=== PATIENT | male | born 1960 | race Caucasian/White ===

== ENCOUNTER → 2023-12-15 08:12 | Outpatient (REF) | payer BC, SELFPAY | LOC: DHCBS HW 08:12 | PROVIDERS: ATTENDING PHYSICIAN Internal Medicine Cardiovascular Disease; FAMILY PHYSICIAN Internal Medicine | DX: I25.5 Ischemic cardiomyopathy (principal) | CPT/HCPCS: 93306 ==

== ENCOUNTER → 2024-05-11 07:27 | Outpatient (REF) | payer BC, SELFPAY | LOC: DHCBC/DCA 07:27 | PROVIDERS: ATTENDING PHYSICIAN Internal Medicine Cardiovascular Disease; FAMILY PHYSICIAN Internal Medicine | DX: Z95.5 Presence of coronary angioplasty implant and graft (principal) | CPT/HCPCS: 78452; 93017; A9500; J2785 ==

== ENCOUNTER 2024-10-26 12:17 | Inpatient (IN) | payer BC, SELFPAY ==
[2024-10-24 23:00] VITALS: BP 163/105
[2024-10-25] VITALS (18 sets, daily range): BP systolic 100–162; BP diastolic 70–99; BMI 30.3
[2024-10-25 00:55] LABS: % Basophils 0.6 % (0-2); % Eosinophils 5.2 % (0-6); % Immature Granulocytes 0.4 % (0-0.5); % Lymphocytes 28.8 % (20.5-51.1); % Monocytes 9.1 % (1.7-9.3); % Neutrophils 55.9 % (42.2-75.2); Absolute Eosinophils 0.4 10^3/uL (0-0.7); Absolute Monocytes 0.6 10^3/uL (0.1-0.6); Absolute Neutrophils 3.9 10^3/uL (1.4-6.5); Hematocrit 44.9 % (39.0-52.0); Hemoglobin 15.3 g/dL (13.0-18.0); Mean Corp Hgb Conc. 34.1 g/dL (33.0-37.0); Mean Corpuscular Hgb 32.6 pg (27.0-31.0); Mean Corpuscular Volume 95.5 fL (80.0-94.0); Mean Platelet Volume 9.7 fL (7.4-10.4); Nucleated Red Blood Cells % 0 % (-); Platelet Count 220 10^3/uL (130-400); Red Cell Dist. Width 13.1 % (11.5-14.5); White Blood Cell Count 6.9 10^3/uL (4.8-10.8)
[2024-10-25 01:14] LABS: ALT (SGPT) 43 U/L (0-50); AST (SGOT) 47 U/L (17-59); Albumin 4.2 g/dl (3.5-5.0); Alkaline Phosphatase 55 U/L (38-126); Blood Urea Nitrogen 25 mg/dl (9-20); Calcium 9.2 mg/dl (8.4-10.2); Carbon Dioxide 25 mmol/L (22-30); Chloride 103 mmol/L (98-107); Estimated Creatinine Clearance 117 ml/min; Glucose 117 mg/dl (70-99); Magnesium 1.8 mg/dl (1.6-2.3); Potassium 3.5 mmol/L (3.5-5.1); Sodium 138 mmol/L (135-145); Total Bilirubin 0.3 mg/dl (0.2-1.3); eGFR > 60.00
--- NOTE | 2024-10-25 01:30 | ED.GENMED ---
History of Present Illness
General
Chief Complaint: AICD Problem
Source: patient, records and spouse
Exam Limitations: none
Time Seen by Provider: 10/25/24 01:04
Nursing documentation reviewed up to this point in time: agreed with
History of Present Illness
History of Present Illness:
Patient is a 64-year-old male with a history of ischemic cardiomyopathy with a dual-chamber pacer ICD who states tonight the ICD went off. Patient was then instructed to come to the emergency department. Patient denies any recent illnesses or
injuries. Patient denies any chest pain, shortness of breath, diaphoresis, syncope or palpitations. Patient denies any GI or symptoms. Patient states that he went to bed and started to feel lightheaded and then felt a jolt and was told that
his defibrillator went off. Patient's EF is 15 to 20%.
Past History
Past History
ED Past Medical History: CAD, GERD, HTN, Hypercholesterolemia, [place], Hypothyroidism and Other (GERD,, hypertension, gout, Roverto's syndrome, thyroid disease)
Social History
Tobacco: Non-smoker
Personal:
Review of Systems
Review of Systems
All Other Systems: ROS reviewed and negative except as documented in HPI and ROS
Constitutional: Reports no symptoms
EENT: Reports no symptoms
Respiratory: Reports no symptoms
Cardiac: Reports other (Defibrillator fired); Denies diaphoresis, palpitations or syncope
ABD/GI: Reports no symptoms
: Reports no symptoms
Musculoskeletal: Reports no symptoms
Skin: Reports no symptoms
Neurological: Reports no symptoms
Hematologic/Lymphatic: Reports no symptoms
Phy Exam
Physical Exam
Physical Exam:
Physical Exam
General: No apparent distress, alert and appropriate, well nourished, well hydrated
HENT: Normocephalic, supple with no lymphadenopathy, no thyromegaly
Eyes: Clear sclera, conjuctiva without injection
Heart: Regular rhythm and rate. No S3, S4. No murmur. No NVD
Lungs: No respiratory distress, no stridor, lung sounds clear and equal bilaterally
Abdomen: Soft, nontender, no organomegaly, no CVA tenderness, BS good
Neuro: Alert and oriented x 3, CN II - XII intact, no motor focality, no cerebellar dysfunction
Skin: no rash
Psychiatric: well kept. interactive and cooperative
Extremities: No edema, cyanosis, tenderness
Course
Orders/Labs/Results
Orders:
Orders
10/25/24 00:32
CMP [Comprehensive Metabolic Panel] Urgent
Complete Blood Count/With Diff Urgent
Magnesium Urgent
10/25/24 01:35
ECG [Electrocardiogram (*1)] Urgent
Reason for Study: Chest Pain
10/25/24 01:36
EKG- Treatment ONCE
Abnormal Lab Results
10/25/24
00:32
MCV 95.5 H fL
(80.0-94.0)
MCH 32.6 H pg
(27.0-31.0)
BUN 25 H mg/dl
(9-20)
Glucose 117 H mg/dl
(70-99)
10/25/24 00:32
10/25/24 00:32
Vital Signs
Initial and Last Documented VS:
Initial Vital Signs
Temp Pulse Resp BP Pulse Ox
98 F 69 18 163/105 99
10/24/24 23:00 10/24/24 23:00 10/24/24 23:00 10/24/24 23:00 10/24/24 23:00
Last Documented Vital Signs
Temp Pulse Resp BP Pulse Ox
98 F 60 21 135/89 97
10/24/24 23:00 10/25/24 00:45 10/25/24 00:45 10/25/24 00:16 10/25/24 00:45
*Radiology
Radiology exam reviewed: other (na)
*Pulse Oximetry
Patient hypoxic: no
*EKG
Interpreted by ED Provider?: Yes
EKG Intrepretation Date: 10/25/24
EKG Intrepretation Time: 01:52
Interpretation: abnormal
Comparison EKG: no changes
Heart Rate: 63
Rate: normal
Rhythm: PVC's and av sequential
*[employer] Fe[employer] Interpretation
Rate: normal
Interpretation: abnormal
Heart Rate: 63
Rhythm: av sequential
*Critical Care Note
Total Time (30-74mins, 75-104mins- exclusive of procedures): Not Applicable
ED Attending Note
-
Portions of this chart may have been created with voice recognition software.� Occasional wrong word or��sound alike� substitutions may have occurred due to the inherent limitations of voice recognition software.
Discharge Plan
Departure
Patient Disposition: Admit
Date of Disposition: 10/25/24
Time of Disposition: 01:53
Admit to: Telemetry
Admit to doctor: Hospitalist
Presentation/result/management discussed w/ accepting MD/DO: Cardiology
Patient with high blood pressure during this ER visit?: Yes
Condition: Serious
Covid-19: Not Applicable
Discharge Problem:
AICD discharge, Ventricular fibrillation
Prescriptions:
No Action
multivitamin [Daily Vitamin] 1 EACH tablet
1 tab PO DAILY
omeprazole 40 MG capsule,delayed release(DR/EC)
40 mg PO DAILY
vitamin B complex [B-100 Complex] 1 EACH tablet
1 tab PO DAILY
aspirin 81 MG tablet,chewable
81 mg PO DAILY 0RF
pravastatin 20 MG tablet
20 mg PO QPM Qty: 30 11RF
hydroxychloroquine 200 MG tablet
400 mg PO DAILY 0RF
furosemide 20 MG tablet
20 mg PO MOWEFR Qty: 12 11RF
carvedilol [Coreg] 12.5 MG tablet
12.5 mg PO BID
zinc 50 mg Tablet
50 mg PO DAILY
magnesium 250 mg Tablet
250 mg PO DAILY
[place] 3 Capsule
1,000 mg PO DAILY
Jardiance 10 mg Tablet
10 mg PO DAILY
sacubitril-valsartan [Entresto] 24-26 mg Tablet
2 tab PO DAILY
Repatha Syringe 140 mg/mL Syringe
140 mg SC Q2W
allopurinol 300 MG tablet
300 mg PO DAILY
levothyroxine 200 MCG tablet
150 mcg PO DAILY
Referrals:
UNKNOWN - PT NOT,INTERVIEWE [Family Provider] -
Interventions
Interventions:
*Risk Screen - Suicide Last Done: 10/24/24 23:03
*General Assessment Last Done: 10/24/24 23:03
ED- Fall Risk Assessment Last Done: 10/25/24 00:17
*ED COVID-19 Vaccine History Last Done: 10/24/24 23:03
ED- Cardiac Assessment Last Done: 10/25/24 00:17
Discharge Date and Time
Print Language: AZERI
--- NOTE | 2024-10-25 02:03 | HPS.HSE ---
Family Physician
-
Family Physician: INTERVIEWE UNKNOWN - PT NOT
Chief Complaint
-
AICD discharge
History of Present Illness
This is a 64-year-old with history of ischemic cardiomyopathy, EF previously around 20 to 25%, status post multiple stents, myocardial disease and gout who presents to the emergency department following AICD discharge a few hours just prior to
arrival.
Patient reported being in usual state of health this evening. Was just finishing coming back from the kitchen to watch TV when he laid down, he suddenly felt very dizzy and lightheaded for a second or 2 and then noticed a shock. Denied having any
associated pain but involuntary movement with the discharge. He called he is alarm signaler who recommended he come to the emergency department for evaluation. Patient denied any antecedent event. He denied feeling short of breath. He denied
feeling dizzy post event. Denied any lightheadedness. Denied any subsequent chest pain or discomfort. Patient denies any recent weight gain lower extremity edema orthopnea or PND. He has been no recent changes in his medications. He denied any
recent exertional dyspnea. He denied any recent travels or sick contacts.
Patient does has AICD for about 6 years now. Denies any prior or discharges. He gets routine evaluation for device malfunction and has never had any issues with the device.
[employer] record the patient had a single incident of V-fib which was terminated by the ICD.
In the emergency department here he was afebrile, blood pressure was 135/89 with a pulse of 60, ECG showed a paced rhythm at rate of 63 with UT prolongation to 240. known lateral T waves inversion are unchanged. QTc was 460. No troponin ordered.
No chest x-ray at this time. CBC unremarkable. Electrolytes mostly unremarkable, potassium was 3.5.
Medical History
Past Medical History
Past Medical History: Reports CAD and CHF
Past Surgical History: Reports Other
Additional Past Surgical History:
Hernia repair in childhood
Status post kidney biopsy
Status post PPM AICD
Social History
Tobacco: Non-smoker
Alcohol: Occasional
Drug: None
Personal:
Living: With Family
Family History
Family History: Not pertinent
Allergies / Home Medications
Allergies reflects when Allergies were last updated in [facility].
Home Medications with original date entered in [facility]
Allergy/Medication List:
Allergies
Allergy/AdvReac Type Severity Reaction Status Date / Time
No Known Allergies Allergy Unverified 01/08/19 10:41
Home Medications
multivitamin (Daily Vitamin tablet) 1 tab PO DAILY 10/31/14
omeprazole 40 mg capsule,delayed release 40 mg PO DAILY 10/31/14
vitamin B complex (B-100 Complex tablet) 1 tab PO DAILY 10/31/14
aspirin 81 mg chewable tablet 81 mg PO DAILY 09/30/17
furosemide 20 mg tablet 20 mg PO MOWEFR #12 tabs 09/30/17
hydroxychloroquine 200 mg tablet 400 mg (2 x 200 mg) PO DAILY 09/30/17
pravastatin 20 mg tablet 20 mg PO QPM ##30 09/30/17
carvedilol 12.5 mg tablet (Coreg) 12.5 mg PO BID 01/08/19
allopurinol 300 mg tablet 300 mg PO DAILY 10/25/24
empagliflozin 10 mg tablet (Jardiance) 10 mg PO DAILY 10/25/24
evolocumab 140 mg/mL subcutaneous syringe (Repatha Syringe) 140 mg SC Q2W 10/25/24
levothyroxine 200 mcg tablet 150 mcg PO DAILY 10/25/24
magnesium 250 mg tablet 250 mg PO DAILY 10/25/24
omega-3 fatty acids 1,000 mg PO DAILY 10/25/24
sacubitril 24 mg-valsartan 26 mg tablet (Entresto) 2 tab PO DAILY 10/25/24
zinc 50 mg tablet 50 mg PO DAILY 10/25/24
Review of Systems
-
History Source: Patient
Constitutional: Reports No Symptoms
EENT: Reports No Symptoms
Respiratory: Reports No Symptoms
Cardiac: Reports Other (AICD discharge)
Abdomen/GI: Reports No Symptoms
: Reports No Symptoms
Musculoskeletal: Reports No Symptoms
Skin: Reports No Symptoms
Neurological: Reports No Symptoms
Endocrine: Reports No Symptoms
Hematologic/Lymphatic: Reports No Symptoms
Psych: Reports No Symptoms
Physical Exam
Vital Signs
Vital Signs
Temp Pulse Resp BP Pulse Ox
98 F 60 21 135/89 97
10/24/24 23:00 12 00:45 10/25/24 00:45 10/25/24 00:16 10/25/24 00:45
Physical Exam
General: Well Developed, Well Nourished, No Apparent Distress and Comfortable
HEENT: NormoCephalic, Anicteric, Moist mucous membranes and Atraumatic
Respiratory: Clear
Cardiac: S1/S2 and Regular Rhythm
Breast: Deferred by me
GI: Soft, Non Tender, Non Distended and Normal Bowel Sounds
Rectal: Deferred by Provider
Genito-urinary: Deferred by me
Musculoskeletal: No Clubbing, No Cyanosis and No Edema
Skin: Warm
Neuro: AO x 3
Hematologic/Lymphatic: No Lymphadenopathy
Psych: Calm
Laboratory Results
-
10/25/24 00:32
10/25/24 00:32
Laboratory Results
Total Bilirubin 0.3 mg/dl (0.2-1.3) 10/25/24 00:32
AST 47 U/L (17-59) 10/25/24 00:32
ALT 43 U/L (0-50) 10/25/24 00:32
Alkaline Phosphatase 55 U/L (38-126) 10/25/24 00:32
Data Reviewed
-
Medical Tests (Nuc Med, Echo, EKG etc): Image Personally Visualized and interpreted
Lab Data: Labs Reviewed by me
Old Records: Reviewed
Impression/Plan
-
IMPRESSION:
64-year-old with ischemic cardiomyopathy EF on last echo was around 25 to 30%, status post AICD who discharged from the ICD x 1 for a episode of V-fib. Patient did have a few seconds of feeling lightheaded prior to discharge. Ordered and that he
was completely asymptomatic. AICD for several years and 1st shock reported.
PLAN:
VFIB w/ AICD discharge - Terminated VFIB likely secondary to underlying cardiomyopathy. Will admit to rule out reversible causes and monitor for recurrence.
- admit to ivu
- cycle cardiac enzymes
- check bnp, echo and chest xray
- keep K, Mag > 4,2
- continue aspirin, statin
- no anti-arrhythmic unless recurrence
- cardiology consultation
CHF - Euvolemic appearing and asymptomatic other than event.
- continue lasix per home 20 mg MoWeFr
- GDMT -> carvedilol 12.5 bid, farxiga 10, entresto
- daily weights
DVT PPX - lovenox sq
Code status - full code
[2024-10-25] MEDS: KLOR-CON 40 MEQ PO (02:28)
[2024-10-25 02:52] LABS: NT-proBNP 161 pg/ml; Troponin I 0.013 ng/ml
--- NOTE | 2024-10-25 03:55 | PTCARENOTE ---
Received pt from ED. A paced on the monitor, HR in the 60s. Patient reports no pain at this time. Admission questions completed. Patient alert and oriented x3, walked from stretcher to scale to bed with no problems. Oriented pt to room and discussed
plan of care for the morning, pt verbalizes understanding. No complaints from pt at this time, call beckford within reach.
[2024-10-25 05:38] LABS: Free T4 1.03 ng/dl (0.78-2.19)
[2024-10-25] MEDS: SYNTHROID 150 MCG PO (05:50)
[2024-10-25 06:14] LABS: Blood Urea Nitrogen 21 mg/dl (9-20); Calcium 9.1 mg/dl (8.4-10.2); Carbon Dioxide 27 mmol/L (22-30); Chloride 105 mmol/L (98-107); Estimated Creatinine Clearance 119 ml/min; Glucose 114 mg/dl (70-99); Magnesium 1.9 mg/dl (1.6-2.3); Phosphorus 3.7 mg/dl (2.5-4.5); Sodium 138 mmol/L (135-145); eGFR > 60.00
[2024-10-25 06:24] LABS: Troponin I 0.016 ng/ml
--- NOTE | 2024-10-25 08:36 | PTCARENOTE ---
Received patient this morning resting in bed, A paced on the monitor. No complaints offered, having an echo at the bedside now, call beckford in reach. Awaiting cardiology to see the patient.
--- NOTE | 2024-10-25 08:45 | CARDSERVLU ---
Echocardiogram with [facility] completed after protocol screening completed. Allergies verified.
Patent IV site: _Rt FA____
IV site flushed with 0.9% NaCl pre and post administration.
Diluted bolus method utilized to enhance visualization of ventricular myrick.
Total volume given: __3.0__ mL
Patient tolerated all procedures well without complications.
[2024-10-25] MEDS: COREG 12.5 MG PO ×2 (09:03→20:14)
[2024-10-25] MEDS: ENTRESTO 24 MG/26 MG 1 TAB PO (09:04)
[2024-10-25] MEDS: FARXIGA 10 MG PO (09:04)
[2024-10-25] MEDS: LOW STRENGTH ASPIRIN 81 MG PO (09:04)
[2024-10-25] MEDS: PROTONIX 40 MG PO (09:05)
[2024-10-25] MEDS: MAGNESIUM OXIDE 250 MG PO (09:05)
[2024-10-25] MEDS: FLUSH (NSS) 1 FLUSH IV (09:06)
[2024-10-25] MEDS: ZYLOPRIM 300 MG PO (09:06)
[2024-10-25] MEDS: PLAQUENIL 400 MG PO (09:06)
--- NOTE | 2024-10-25 09:14 | W.PN.UPDATE ---
Update Note
Progress Note Update
Nonbillable addendum (H&P submitted 2 AM)
Admitted with AICD shock experienced at home, interrogation reportedly showed episode of VF terminated by AICD. Evaluated in ER and not felt to have acute ACS, CHF and electrolytes normal.
This morning, resting comfortably, no chest pain/SOB, palpitations, no dizziness or lightheadedness
2D echo performed this AM
Assessment:
Vfib s/p AICD discharged (successfully terminated)
- suspect related to underlying Cardiomyopathy history and CAD history with stents
- no objective evidence of ACS or acute CHF
- electrolytes; keep Mg>2, K>4
- monitor tele
- Echo pending
- Possible Cath today; DCA cards to evaluate. NPO for now
Hx of CAD s/p stents
Essential HTN
HLD
- continue ASA/BB/Repatha/Statin
Hx of Cardiomyopathy (Chronic HFrEF)
- continue Lasix M/W/F
- continue GDMT; Coreg/Farxiga/Entresto
- monitor volume status, weights
- Await Echo
GERD
Hiatal hernia
- continue PPI
hx of Gout - allopurinol
Hypothyroidism - Levothyroxine - TSH 16.5. Would defer changes in setting of V. Fib. Repeat TFTs outpatient.
DVT ppx: Lovenox
Code: Full
--- NOTE | 2024-10-25 09:39 | PTCARENOTE ---
Patient seen by Dr. Elias, for cardiac cath today, patient given his AM meds, otherwise has been NPO. Report given to Jesica. Family will be waiting in his room.
--- NOTE | 2024-10-25 09:40 | CON.CAR ---
Addendum entered and electronically signed by Dmitri Elias MD 10/25/24 11:40:
Attending addendum: Patient seen and examined. Angiograms reviewed. Patient has a known dilated cardiomyopathy and experienced sustained ventricular tachycardia with ICD discharge. He has been relatively pain-free. Troponin levels remain in
normal limits. Severe LV dysfunction. Normal activity throughout the day yesterday. As he went to bed he experienced a jolt in his chest with some mild-moderate dizziness. His defibrillator discharged. Troponin levels have remained within
normal limits. Reasonably active but has gotten away from it over the past 6 to 12 months. Given the ICD discharge the decision was made to proceed with coronary angiography. I explained the risks and benefits and detail to the patient and his
family.
Original Note:
Consultation
Consultation Request
Date/Time Consultation Requested: 10/25/24 at 0304
Date/Time Consultation Performed: 10/25/24 at 0934
Requesting Provider: Dr. Delgado
Performing Provider: Dr. Elias
Reason for Consultation: ICD shock for VF
Medical History
-
History of Present Illness:
Patient came to [facility] last night after an ICD shock for VF and cardiology is consulted. Patient with h/o chest pain and abnormal stress test that led to a cath in 2007 with Cypher SHYANNE to OM at that time. He then presented with acute anterior STEMI
09/26/17 and underwent emergent LHC with Dr. Gonzales where he was found to have 3 vessel CAD with moderate to severe LV dysfunction including proximal LAD occlusion. Patient had 3.25 mm Xience to proximal LAD occlusion and tandem 2.75 mm x2 Xience
to mid LAD lesions 09/26/17. Patient then returned for 4.0mm Xience V to the mid to distal RCA and 3.0mm Xience V to the OM1 09/29/17. Patient has been on optimal medical therapy and EF remained depressed and so Medtronic DC ICD was placed in 2019.
Patient has never been shocked but has had occasional NSVT on device checks in the office. Patient says he was able to shovel some snow on Friday without chest pain, but that most of the shoveling was done by a neighbor. Patient had an uneventful
day yesterday and was laying down to go to bed last night when he felt briefly dizzy and then was shocked. No additional symptoms, he denies chest pain or SOB. He came to [facility] where device check confirmed AICD shock and patient was admitted.
PMH:
h/o NSVT
ICM EF 25-30% by echo 12/15/23
Chronic HFpEF
s/p Medtronic dual-chamber ICD
CAD
s/p Cypher SHYANNE to OM 2007
s/p AWMI 3.25 mm Xience to proximal LAD occlusion and tandem 2.75 mm x2 Xience to mid LAD lesions 09/26/17
s/p 4.0mm Xience V to the mid to distal RCA and 3.0mm Xience V to the OM1 09/29/17
h/o glomerulonephritis
Roverto's disease
Dyslipidemia
Hypothyroidism
Past Medical History
Past Medical History: Other (in HPI)
Past Surgical History: Cardiac (OM PCI 2007, LAD and RCA PCI 2016, Medtronic ICD 2018)
Social History
Tobacco: Non-Smoker
Alcohol: None
Drug: None
Personal:
Living: With Family
Family History
Family History: Cancer, Hypertension and Other (Afib)
Allergies / Home Medications
Allergy/AdvReac Type Severity Reaction Status Date / Time
No Known Allergies Allergy Unverified 01/08/19 10:41
�Medication �Instructions �Recorded �Confirmed �Type
multivitamin (Daily Vitamin tablet) 1 tab PO DAILY 10/31/14 10/25/24 History
omeprazole 40 mg capsule,delayed 40 mg PO DAILY 10/31/14 10/25/24 History
release
vitamin B complex (B-100 Complex 1 tab PO DAILY 10/31/14 10/25/24 History
tablet)
aspirin 81 mg chewable tablet 81 mg PO DAILY 09/30/17 10/25/24 Rx
furosemide 20 mg tablet 20 mg PO MOWEFR #12 tabs 09/30/17 10/25/24 Rx
hydroxychloroquine 200 mg tablet 400 mg (2 x 200 mg) PO DAILY 09/30/17 10/25/24 Rx
pravastatin 20 mg tablet 20 mg PO QPM ##30 09/30/17 10/25/24 Rx
carvedilol 12.5 mg tablet (Coreg) 12.5 mg PO BID 01/08/19 10/25/24 History
allopurinol 300 mg tablet 300 mg PO DAILY 10/25/24 10/25/24 History
empagliflozin 10 mg tablet 10 mg PO DAILY 10/25/24 10/25/24 History
(Jardiance)
evolocumab 140 mg/mL subcutaneous 140 mg SC Q2W 10/25/24 10/25/24 History
syringe (Repatha Syringe)
levothyroxine 200 mcg tablet 150 mcg PO DAILY 10/25/24 10/25/24 History
magnesium 250 mg tablet 250 mg PO DAILY 10/25/24 10/25/24 History
omega-3 fatty acids 1,000 mg PO DAILY 10/25/24 10/25/24 History
sacubitril 24 mg-valsartan 26 mg 2 tab PO DAILY 10/25/24 10/25/24 History
tablet (Entresto)
zinc 50 mg tablet 50 mg PO DAILY 10/25/24 10/25/24 History
Review of Systems
-
History Source: Patient and Family ( and friend sitting bedside.)
All other systems: Negative unless noted
Physical Exam
Vital Signs
Temp Pulse Resp BP Pulse Ox
98.2 F 61 18 145/99 100
10/25/24 07:55 10/25/24 07:54 10/25/24 07:55 10/25/24 07:54 10/25/24 07:55
GEN: NAD. AAOx3
HEENT: EOMI, MMM
LUNGS: RA. CTA B/L, no wheezes or rales
CV: Reg, S1/S2, no murmur
ABD: soft, BS+, NT, ND
EXT: No clubbing, cyanosis, lesions or edema B/L
NEURO: Gross non-focal
SKIN: Warm, dry and pink. No rash
Lab Results
10/25/24 00:32
10/25/24 05:43
Troponin I 0.016 ng/ml 10/25/24 05:43
Irg-K-Cqweorhcyfu Pept 161 pg/ml 10/25/24 02:19
Impression / Plan
-
PCP: Dr. Bowman
Gas Well Drilling Manager: Dr. Anders
Rheum: Dr. Jennifer Ayers
Nephro: Dr. Leno at [facility]
Impression:
Admitted with AICD shock for VF 10/24/24
VF successfully treated with AICD shock x1 10/24/24
h/o NSVT
ICM EF 25-30% by echo 12/15/23
Chronic HFpEF
s/p Medtronic dual-chamber ICD
CAD
s/p Cypher SHYANNE to OM 2007
s/p AWMI 3.25 mm Xience to proximal LAD occlusion and tandem 2.75 mm x2 Xience to mid LAD lesions 09/26/17
s/p 4.0mm Xience V to the mid to distal RCA and 3.0mm Xience V to the OM1 09/29/17
h/o glomerulonephritis
Roverto's disease
Dyslipidemia
Hypothyroidism
Echo 12/15/23: EF 25-30%, grade I diastolic dysfunction, normal RV size and function, no pericardial effusion
Plan:
-Patient came to [facility] last night after an ICD shock for VF and cardiology is consulted. Patient with h/o chest pain and abnormal stress test that led to a cath in 2007 with Cypher SHYANNE to OM at that time. He then presented with acute anterior STEMI
09/26/17 and underwent emergent LHC with Dr. Gonzales where he was found to have 3 vessel CAD with moderate to severe LV dysfunction including proximal LAD occlusion. Patient had 3.25 mm Xience to proximal LAD occlusion and tandem 2.75 mm x2 Xience
to mid LAD lesions 09/26/17. Patient then returned for 4.0mm Xience V to the mid to distal RCA and 3.0mm Xience V to the OM1 09/29/17. Patient has been on optimal medical therapy and EF remained depressed and so Medtronic DC ICD was placed in 2019.
Patient has never been shocked but has had occasional NSVT on device checks in the office. Patient says he was able to shovel some snow on Friday without chest pain, but that most of the shoveling was done by a neighbor. Patient had an uneventful
day yesterday and was laying down to go to bed last night when he felt briefly dizzy and then was shocked. No additional symptoms, he denies chest pain or SOB. He came to [facility] where device check confirmed AICD shock and patient was admitted.
-ECG and tele reviewed by me, A paced with occasional PVCs. No NSVT seen on tele
-Device check reviewed by me and no additional NSVT, 3 years battery longevity remain.
-Troponin normal thus far.
-Check echo, EF was 25-30% in 12/2023
-Talked with patient and family sitting bedside about risks vs benefits of cath. We reviewed possible ischemia based VT/VF. We also talked about possible scar based VT/VF and that pending results of cath could consider outpatient EP evaluation if
patient continues with significant burden of VT/VF and shocks vs possible addition of AAD.
-EF was 25% 12/2023 and since then he had spironolactone 12.5 mg daily added to his regimen. Recheck EF on echo
-Outpatient dose of Coreg 12.5 mg BID continued
-Outpatient dose of Entresto 24/26 mg BID has been continued.
-Outpatient dose of Jardiance 10 mg daily has been continued in the form of Farxiga due to formulary.
-Outpatient dose of aspirin 81 mg dialy continued
-Outpatient dose of Lasix 20 mg MWF has been continued and pro-BNP was 161 this morning. Patient does not appear to be in acute HF.
-LDL 76 on 01/24/24. Patient takes pravastatin 20 mg daily and Repatha 140 mg q 2 weeks
-Patient follows with Dr. Ayers in the Rheum office for h/o Roverto's disease
-Patient follows with nephrology at [facility], Dr. Leon. Cre 0.7 this AM
[2024-10-25 11:08] LABS: ACT-LR - POC 347 Seconds (116-155)
[2024-10-25 11:24] LABS: ACT-LR - POC 316 Seconds (116-155)
--- NOTE | 2024-10-25 11:54 | PTCARENOTE ---
Received patient back from the clinical laboratory scientist after LHC via right radial. Post EKG done, radial band and dressing are dry and intact with palpable radial pulse and pulse ox of 97% on his right hand. Patient denies any pain, reinforced post cath
restrictions. Call beckford in reach, family at the bedside.
--- NOTE | 2024-10-25 12:13 | CM ---
Addendum entered by Geno Dorado 10/25/24 13:15:
Reviewed co-pay for Brilinta with him. He is agreeable to the co-pay.
Original Note:
Reviewed chart. Met with and Mrs. Bailey to review discharge plans. He states prior to admission he resides with his spouse in a two sto ry home with two steps to enter. He states he has a full flight of steps to get to bedroom/full bathroom.
He states he has a powder room on the first floor. He states prior to admission he was independent with ambulation and adls. He states he does not have any DME in the home. He states he has a prescription plan [facility]. Telephone call to [facility], ([phone]) to check on coverage for Brilinta 90 mg po bid. HIs co-pay would be $50.00 a month. He has commercial insurance and can use the $5.00 a month coupon. Placed the Brilinta coupon in his red
discharge folder. Telephone call to [facility],([phone]) to see if they have Brilinta 90 mg po in stock. [facility] has it in stock. The discharge plan is to return home with his spouse when medically stable.
[2024-10-25 12:51] LABS: Troponin I 0.015 ng/ml
--- NOTE | 2024-10-25 14:25 | ITS.CL.CATH ---
Front Office Spec - Catheterization
Cardiac Catheterization
Procedure Report:
LEFT HEART CATH AND CORONARY INTERVENTION
Date of Procedure: October 25, 2024
Referring: Dr. Dmitri Elias
PROCEDURES:
1. Left heart catheterization with coronary and single-plane left ventriculography
2. Successful stenting of the LAD with a 3.0 x 28 mm Xience stent that was implanted at nominal pressures and postdilated with a 3.25 mm noncompliant balloon
INDICATION: This is a 64-year-old gentleman with a prior history of an ischemic cardiomyopathy and remote anterior wall myocardial infarction in 2017. He presented to [facility] following an ICD discharge and is now referred for coronary
angiography.
ACCESS: Right radial artery, 6 Hebrew sheath
HEMODYNAMICS (mmHg):
AO (s/d, m) : 130/80
LV (s/d) : 138/15
LVEDP : 25
CORONARY FINDINGS
Dominance: Right
LEFT MAIN: Normal
LEFT ANTERIOR DESCENDING: The LAD arises normally from the left main and runs in the anterior interventricular groove. The proximal LAD stent is patent. The mid LAD beyond the stented segment has a 65-70% stenosis. A second stent is noted in the
mid LAD and appears widely patent.
CIRCUMFLEX: The circumflex is a large-caliber nondominant vessel giving rise to a moderate-sized OM1. The stent in OM1 is widely patent. The distal portion of OM 1 is diffusely diseased but angiographically stable. The stent in OM 2 is widely
patent.
RIGHT CORONARY: The right coronary artery is a dominant vessel. The stent in the distal right coronary artery near the crux of the vessel remains widely patent. PDA is small. Posterolateral branch is small
VENTRICULOGRAPHY: Left ventriculography was performed in RICHARD projection. The digital single-plane left ventricular ejection fraction is estimated at 20% with anterolateral, mid to distal anterior and apical akinesis
ANGIOPLASTY PROCEDURE DETAIL: Upon review of the diagnostic catheterization films the decision was made to proceed with percutaneous revascularization of the stenosis in the mid LAD. Intravenous heparin was administered and a 180 mg loading dose of
ticagrelor was given. A BMW guidewire across the stenotic segment in the LAD and was Gruber to the apical segment. Balloon predilation was performed and was followed by placement of a 3.0 x 28 mm Xience stent positioned overlapping at the distal
edge of the proximal LAD stent. The stent was implanted in the mid LAD at nominal pressures then postdilated with a 3.25 mm noncompliant balloon with an excellent angiographic result
RADIATION SUMMARY: Fluoro Time (min): 7.9, Dose (mGy): 776.8, DAP (Gy.cm2) : 51.2
CONCLUSIONS
1. Successful stenting of the mid LAD with a 3.0 x 28 mm Xience stent that was postdilated with a 3.25 mm noncompliant balloon
2. Severe LV dysfunction
RECOMMENDATIONS
1. Uninterrupted dual antiplatelet therapy for 6-12 months
2. Continue secondary risk modification
Copy to: Dr. Nigel Anders
[2024-10-25] MEDS: THERAGRAN 1 TABLET PO (15:38)
[2024-10-25] MEDS: LASIX 20 MG PO (15:42)
[2024-10-25] MEDS: PRAVACHOL 20 MG PO (17:42)
--- NOTE | 2024-10-25 18:15 | PTCARENOTE ---
Dressing right wrist is dry and intact, patient denies any pain or discomfort. Patient to start PO amiodarone tonight, A paced/SR on the monitor, remains at the bedside.
[2024-10-25] MEDS: BRILINTA 90 MG PO (20:13)
[2024-10-25] MEDS: LOVENOX 40 MG SC (20:14)
[2024-10-25] MEDS: PACERONE 200 MG PO (20:14)
[2024-10-26 04:22] VITALS: BP 102/85
[2024-10-26 04:30] VITALS: BMI 29.4
[2024-10-26 05:38] LABS: Blood Urea Nitrogen 21 mg/dl (9-20); Calcium 9.2 mg/dl (8.4-10.2); Carbon Dioxide 26 mmol/L (22-30); Chloride 102 mmol/L (98-107); Estimated Creatinine Clearance 104 ml/min; Glucose 103 mg/dl (70-99); Magnesium 1.9 mg/dl (1.6-2.3); Potassium 3.4 mmol/L (3.5-5.1); Sodium 137 mmol/L (135-145); eGFR > 60.00
--- NOTE | 2024-10-26 06:20 | PTCARENOTE ---
Assumed care of pt at change of shift. SR with PVCs and Apacing on tele with HR 70s. Denies CP and SOB. R radial cath site c/d/i with no complications noted. Ambulating independently in room without difficulty. Plan of care discussed and pt
verbalizes understanding, states he is hoping to be discharged later today. Can make needs known. Call beckford within reach.
[2024-10-26] MEDS: SYNTHROID 150 MCG PO (06:39)
[2024-10-26 07:06] LABS: Hematocrit 44.1 % (39.0-52.0); Hemoglobin 15.6 g/dL (13.0-18.0); Mean Corp Hgb Conc. 35.4 g/dL (33.0-37.0); Mean Corpuscular Hgb 33.5 pg (27.0-31.0); Mean Corpuscular Volume 94.6 fL (80.0-94.0); Platelet Count 214 10^3/uL (130-400); Red Blood Cell Count 4.66 10^6/uL (4.70-6.10); Red Cell Dist. Width 13.2 % (11.5-14.5); White Blood Cell Count 6.9 10^3/uL (4.8-10.8)
--- NOTE | 2024-10-26 08:16 | W.PN.CARDCBS ---
Addendum entered and electronically signed by Dmitri Elias MD 10/26/24 10:02:
Attending addendum: Patient seen and examined. He is feeling well. He is stable for discharge. Discussed no driving for 1 month. He is on amiodarone 200mg bid. Discussed the need for dual antiplatelet therapy. He will be scheduled for
followup in our office with SALES REPRESENTATIVE [employer]INTING/PA then back to Dr. Anders.
Original Note:
Today's Communication / Plan
-
D/C to home today on amiodarone and Brilinta as new meds
54 min including meds, d/c instructions and overall coordination of care
Impression / Plan
-
PCP: Dr. Bowman
Merchandise Collector: Dr. Anders
Rheum: Dr. Jennifer Ayers
Nephro: Dr. Leon at [facility]
Impression:
Admitted with AICD shock for VF 10/24/24
VF successfully treated with AICD shock x1 10/24/24
h/o NSVT
ICM EF 25-30% by echo 12/15/23
Chronic HFpEF
s/p Medtronic dual-chamber ICD
CAD
s/p Cypher SHYANNE to OM 2007
s/p AWMI 3.25 mm Xience to proximal LAD occlusion and tandem 2.75 mm x2 Xience to mid LAD lesions 09/26/17
s/p 4.0mm Xience V to the mid to distal RCA and 3.0mm Xience V to the OM1 09/29/17
s/p 3.0 mm Xience to LAD 10/25/24
h/o glomerulonephritis
Roverto's disease
Dyslipidemia
Hypothyroidism
Echo 12/15/23: EF 25-30%, grade I diastolic dysfunction, normal RV size and function, no pericardial effusion
Echo 10/25/24: EF 25-30%, mild conc LVH, apical and apical septal hypokinesis, trace MR/TR, no pericardial effusion
Plan:
-Patient was found to have an LAD lesion that was stented 10/25/24. New to Brilinta 90 mg BID and patient has commercial insurance so he can use the $5 co-pay card.
-Outpatient dose of aspirin 81 mg daily has been continued.
-LDL 76 on 01/24/24. Patient takes pravastatin 20 mg daily and Repatha 140 mg q 2 weeks
-EF stable at 25-30% by echo
-Outpatient dose of Coreg 12.5 mg BID continued
-Outpatient dose of Entresto 24/26 mg BID has been continued.
-Outpatient dose of Jardiance 10 mg daily has been continued in the form of Farxiga due to formulary.
-Outpatient dose of Lasix 20 mg MWF has been continued and pro-BNP was 161 this morning. Patient does not appear to be in acute HF.
-Outpatient dose of spironolactone 12.5 mg daily has been continued.
-Patient follows with Dr. Ayers in the Rheum office for h/o Roverto's disease
-Patient follows with nephrology at [facility], Dr. Leon. Cre 0.7 this AM
-AICD shock for VF on admission
-Device check from 10/24/24 reviewed by me and no additional NSVT, 3 years battery longevity remain.
-New to amiodarone this admission and will order amiodarone 200 mg BID for 1 month and then 200 mg daily thereafter upon d/c
-QTc 467 with amiodarone and hydroxychloroquine.
-No driving for 1 month.
-Patient is stable for d/c to home
-Will e-scribe meds and arrange cardiology f/u
HPI: Patient came to [facility] last night after an ICD shock for VF and cardiology is consulted. Patient with h/o chest pain and abnormal stress test that led to a cath in 2007 with Cypher SHYANNE to OM at that time. He then presented with acute anterior
STEMI 09/26/17 and underwent emergent LHC with Dr. Gonzales where he was found to have 3 vessel CAD with moderate to severe LV dysfunction including proximal LAD occlusion. Patient had 3.25 mm Xience to proximal LAD occlusion and tandem 2.75 mm x2
Xience to mid LAD lesions 09/26/17. Patient then returned for 4.0mm Xience V to the mid to distal RCA and 3.0mm Xience V to the OM1 09/29/17. Patient has been on optimal medical therapy and EF remained depressed and so Medtronic DC ICD was placed in
2018. Patient has never been shocked but has had occasional NSVT on device checks in the office. Patient says he was able to shovel some snow on Friday without chest pain, but that most of the shoveling was done by a neighbor. Patient had an
uneventful day yesterday and was laying down to go to bed last night when he felt briefly dizzy and then was shocked. No additional symptoms, he denies chest pain or SOB. He came to [facility] where device check confirmed AICD shock and patient was
admitted.
Progress Note - Merchandise Collector
Subjective
Date of Service: October 26, 2024
He feels well, no chest pain
Objective
Labs:
10/26/24 04:35
10/26/24 04:35
Labs
Hgb 15.6 g/dL (13.0-18.0) 10/26/24 04:35
Hct 44.1 % (39.0-52.0) 10/26/24 04:35
Plt Count 214 10^3/uL (130-400) 10/26/24 04:35
Sodium 137 mmol/L (135-145) 10/26/24 04:35
Potassium 3.4 mmol/L (3.5-5.1) L 10/26/24 04:35
BUN 21 mg/dl (9-20) H 10/26/24 04:35
Creatinine 0.8 mg/dL (0.7-1.3) 10/26/24 04:35
Glucose 103 mg/dl (70-99) H 10/26/24 04:35
Troponins
12/10/25/24 10/25/24
02:19 05:43 12:19
Troponin I 0.013 0.016 0.015
Vital Signs and I&O:
Vital Signs
Temp Pulse Resp BP Pulse Ox
97.8 F 70 18 102/85 96
10/26/24 04:24 10/26/24 04:22 10/26/24 04:24 10/26/24 04:22 10/26/24 04:24
Vital Signs
Temp Pulse Resp BP Pulse Ox
97.8 F 70 18 102/85 96
10/26/24 04:24 10/26/24 04:22 10/26/24 04:24 10/26/24 04:22 10/26/24 04:24
Intake & Output
10/24/24 10/25/24 10/26/24 10/27/24
06:59 06:59 06:59 06:59
Intake Total 980 / 980
Balance 980 / 980
Physical Exam
Physical Exam
GEN: NAD. AAOx3
HEENT: EOMI, MMM
LUNGS: RA. No audible wheeze
CV: A paced on tele
ABD: ND
EXT: No edema B/L
NEURO: Gross non-focal
SKIN: Warm, dry and pink. No rash
[2024-10-26 08:36] VITALS: BP 123/89
[2024-10-26] MEDS: KCL 40 MEQ PO (08:40)
[2024-10-26] MEDS: BRILINTA 90 MG PO (08:40)
[2024-10-26] MEDS: COREG 12.5 MG PO (08:40)
[2024-10-26] MEDS: MAGNESIUM OXIDE 250 MG PO (08:41)
[2024-10-26] MEDS: LOW STRENGTH ASPIRIN 81 MG PO (08:41)
[2024-10-26] MEDS: ENTRESTO 24 MG/26 MG 1 TAB PO (08:41)
[2024-10-26] MEDS: FARXIGA 10 MG PO (08:41)
[2024-10-26] MEDS: PROTONIX 40 MG PO (08:42)
[2024-10-26] MEDS: PLAQUENIL 400 MG PO (08:42)
[2024-10-26] MEDS: PACERONE 200 MG PO (08:42)
[2024-10-26] MEDS: FLUSH (NSS) 1 FLUSH IV (08:43)
[2024-10-26] MEDS: THERAGRAN 1 TABLET PO (08:43)
[2024-10-26] MEDS: ZYLOPRIM 300 MG PO (08:43)
--- NOTE | 2024-10-26 10:02 | PTCARENOTE ---
Received patient this morning resting in bed. Denies any chest pain, palpitations or sob. Seen by Dr. Elias and states he will let him go home today. Right wrist dressing is dry and intact.
[2024-10-26 11:24] VITALS: BP 108/84
--- NOTE | 2024-10-26 11:48 | CM ---
Reviewed chart. Met with and Mrs. Rollins to review discharge plans. He states he is feeling well and maybe able to go home soon. Reviewed the $5.00 coupon for his Brilinta. Prior to admission he resides with his spouse in a two story home with
two steps to enter. He has a full flight of steps to get to bedroom/fulll bathroom. He has a powder room on on the first floor. Prior to admission he was independent with ambulation and adls. He does not have any DME in the home. He has a
prescription plan with [facility] and uses [facility]. The discharge plan is to return home with his spouse when medically stable.
--- NOTE | 2024-10-26 12:06 | W.PN.HOSP.TC ---
Today's Communication/Plan
-
dc to home
Assessment / Plan
Assessment / Plan
Assessment:
Vfib s/p AICD discharged (successfully terminated)
- suspect related to underlying Cardiomyopathy history and CAD history with stents
- no objective evidence of ACS or acute CHF
- electrolytes; keep Mg>2, K>4
- monitor tele
- Echo 10/25/24: EF 25-30%, mild conc LVH, apical and apical septal hypokinesis, trace MR/TR, no pericardial effusion
- s/p LHC with LAD stenting
- New to amiodarone this admission and will order amiodarone 200 mg BID for 1 month and then 200 mg daily thereafter upon d/c
Hx of CAD s/p stents
Essential HTN
HLD
- continue ASA/BB/Repatha/Statin + Brilinta
Hx of Cardiomyopathy (Chronic HFrEF)
- continue Lasix M/W/F
- continue GDMT; Coreg/Farxiga/Entresto
- monitor volume status, weights
GERD
Hiatal hernia
- continue PPI
hx of Gout - allopurinol
Hypothyroidism - Levothyroxine - TSH 16.5. Would defer changes in setting of V. Fib. Repeat TFTs outpatient.
DVT ppx: Lovenox
Code: Full
More than 30 minutes spent in discharge including
Final examination of the patient
Summarizing hospital stay
Instructions for continuing care to all relevant caregivers
Preparation of discharge records, prescriptions, and referral forms
Total time spent (in minutes):41
Anticipated Discharge: Today
Subjective/Interval History
-
Date of Service: October 26, 2024
s/p LHC and stent
no cp or sob
eager for home
Objective Data
-
Labs:
Laboratory Results
10/26/24
04:35
WBC 6.9
Hgb 15.6
Hct 44.1
Plt Count 214
Sodium 137
Potassium 3.4 L
Chloride 102
Carbon Dioxide 26
BUN 21 H
Creatinine 0.8
Glucose 103 H
Calcium 9.2
Vital Signs:
Vital Signs
Temp Pulse Resp BP Pulse Ox
98.2 F 72 18 123/89 98
10/26/24 11:25 10/26/24 08:40 10/26/24 11:25 10/26/24 08:40 10/26/24 11:25
I&O
10/25/24 10/26/24 10/27/24
06:59 06:59 06:59
Intake Total 980 / 980
Balance 980 / 980
Physical Exam
-
General: No Apparent Distress
HEENT: Normocephalic and Atraumatic
Respiratory: Negative Wheezes
Cardiac: Regular Rhythm and S1/S2
GI: Soft and Nontender
Genito-urinary: No Costovertebral Tender
Musculoskeletal: No Edema
Neuro: AO x 3
Hematologic / Lymphatic: No Lymphadenopathy
Psych: Calm
Data Reviewed
-
Total Time Spent with Patient (in minutes): 41
Labs: Labs Reviewed by me
--- NOTE | 2024-10-26 12:09 | W.DS.TRANS ---
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
-
Discharge Instructions:
Discharge Diagnosis/Procedures Angioplasty and stent to Left Anterior
Descending artery
Diet Low Cholesterol
Activity Other activity
Driving Restrictions No driving for 1 month
Bathing Restrictions OK to Shower
Other Services Cardiac Rehab
Instructions:
Stand-Alone Forms: DC Instructions- Cath/EP Lab
Changes to Home Medications: No
Discharge Medications:
DC Medications w/original date entered in [employer]
multivitamin (Daily Vitamin tablet) 1 tab PO DAILY 10/31/14
omeprazole 40 mg capsule,delayed release 40 mg PO DAILY 10/31/14
vitamin B complex (B-100 Complex tablet) 1 tab PO DAILY 10/31/14
aspirin 81 mg chewable tablet 81 mg PO DAILY 09/30/17
furosemide 20 mg tablet 20 mg PO MOWEFR #12 tabs 09/30/17
hydroxychloroquine 200 mg tablet 400 mg (2 x 200 mg) PO DAILY 09/30/17
pravastatin 20 mg tablet 20 mg PO QPM ##30 09/30/17
carvedilol 12.5 mg tablet (Coreg) 12.5 mg PO BID 01/08/19
allopurinol 300 mg tablet 300 mg PO DAILY 10/25/24
empagliflozin 10 mg tablet (Jardiance) 10 mg PO DAILY 10/25/24
evolocumab 140 mg/mL subcutaneous syringe (Repatha Syringe) 140 mg SC Q2W 10/25/24
levothyroxine 200 mcg tablet 150 mcg PO DAILY 10/25/24
magnesium 250 mg tablet 250 mg PO DAILY 10/25/24
omega-3 fatty acids 1,000 mg PO DAILY 10/25/24
zinc 50 mg tablet 50 mg PO DAILY 10/25/24
amiodarone 200 mg tablet 200 mg PO BID Arrhythmia #60 tabs 10/26/24
amiodarone 200 mg tablet 200 mg PO DAILY Arrhythmia #30 tabs 10/26/24
sacubitril 24 mg-valsartan 26 mg tablet (Entresto) 1 tab PO BID Heart Failure #60 tabs 10/26/24
ticagrelor 90 mg tablet (Brilinta) 90 mg PO BID Heart disease/condition #60 tabs 10/26/24
Home Medication Changes
Pending Results: No
Total time spent discharging patient (in min): 41
--- NOTE | 2024-10-26 13:07 | PTCARENOTE ---
Reviewed discharge instructions with the patient and his and they state their understanding. Patient is aware of follow up appointments, new medication ordered, patient discharged home with his .
== END 2024-10-26 12:50 | disposition home or self-care (01) | DRG 321 ==
LOC: IVU 12:17
PROVIDERS: Emergency Medicine; Nurse Practitioner; ADMITTING PHYSICIAN Internal Medicine; ATTENDING PHYSICIAN Internal Medicine; EMERGENCY PHYSICIAN Emergency Medicine; OTHER PHYSICIAN Internal Medicine Interventional Cardiology
PROC: 4A023N7 Measurement of Cardiac Sampling and Pressure, Left Heart, Percutaneous Approach (ICD-10-PCS; 2024-10-25)
PROC: 02703DZ Dilation of Coronary Artery, One Artery with Intraluminal Device, Percutaneous Approach (ICD-10-PCS; 2024-10-25)
PROC: B215YZZ Fluoroscopy of Left Heart using Other Contrast (ICD-10-PCS; 2024-10-25)
PROC: B211YZZ Fluoroscopy of Multiple Coronary Arteries using Other Contrast (ICD-10-PCS; 2024-10-25)
DX: I25.10 Atherosclerotic heart disease of native coronary artery without angina pectoris (principal); I49.01 Ventricular fibrillation; I50.22 Chronic systolic (congestive) heart failure; E74.04 McArdle disease; I11.0 Hypertensive heart disease with heart failure; K21.9 Gastro-esophageal reflux disease without esophagitis; K44.9 Diaphragmatic hernia without obstruction or gangrene; M10.9 Gout, unspecified; E03.9 Hypothyroidism, unspecified; E78.00 Pure hypercholesterolemia, unspecified; I25.5 Ischemic cardiomyopathy; I25.2 Old myocardial infarction; Z79.890 Hormone replacement therapy; Z95.5 Presence of coronary angioplasty implant and graft; Z95.810 Presence of automatic (implantable) cardiac defibrillator; Z79.82 Long term (current) use of aspirin; Z79.899 Other long term (current) drug therapy
CPT/HCPCS: 71046; 80048; 80053; 83735; 83880; 84100; 84439; 84443; 84484; 85025; 85027; 85347; 93005; 93306; 93458; 99285; C1725; C1769; C1874; C1894; C9600; Q9950; Q9967

== ENCOUNTER 2024-12-03 08:45 | Outpatient (RCR) | payer BC, SELFPAY | END 2024-12-03 23:59 | disposition home or self-care (01) | LOC: CRHB 08:45 | PROVIDERS: Internal Medicine Cardiovascular Disease; ATTENDING PHYSICIAN Internal Medicine Cardiovascular Disease | DX: I25.10 Atherosclerotic heart disease of native coronary artery without angina pectoris (principal); Z95.5 Presence of coronary angioplasty implant and graft | CPT/HCPCS: 93797; 93798 ==

== ENCOUNTER 2024-12-31 08:41 | Outpatient (RCR) | payer BC, SELFPAY | END 2024-12-31 23:59 | disposition home or self-care (01) | LOC: CRHB 08:41 | PROVIDERS: ATTENDING PHYSICIAN Internal Medicine Cardiovascular Disease | DX: I25.10 Atherosclerotic heart disease of native coronary artery without angina pectoris (principal); Z95.5 Presence of coronary angioplasty implant and graft | CPT/HCPCS: 93797; 93798; G0422; G0423 ==

== ENCOUNTER 2025-01-14 07:15 | Outpatient (RCR) | payer BC, SELFPAY ==
[2025-01-12 09:06] LABS: HDL Cholesterol 39 mg/dl; LDL Cholesterol, Calculated 27 mg/dl; Total Cholesterol 97 mg/dl (50-199); Triglyceride 155 mg/dl (10-149); Very Low Density Lipoprotein 31 mg/dl (0-30)
== END 2025-01-14 08:44 | disposition home or self-care (01) ==
LOC: CRHB 07:15
PROVIDERS: ATTENDING PHYSICIAN Internal Medicine Cardiovascular Disease; FAMILY PHYSICIAN Internal Medicine
DX: I25.10 Atherosclerotic heart disease of native coronary artery without angina pectoris (principal); Z95.5 Presence of coronary angioplasty implant and graft
CPT/HCPCS: 36415; 80061; 93797; 93798

== ENCOUNTER 2025-05-13 21:43 | Emergency (ER) | payer BC, SELFPAY ==
[2025-05-13 21:45] VITALS: BP 136/94
[2025-05-13 22:11] LABS: Hematocrit 43.4 % (39.0-52.0); Hemoglobin 15.5 g/dL (13.0-18.0); Mean Corp Hgb Conc. 35.7 g/dL (33.0-37.0); Mean Corpuscular Volume 96.0 fL (80.0-94.0); Nucleated Red Blood Cells % 0 % (-); Platelet Count 213 10^3/uL (130-400); Red Cell Dist. Width 12.7 % (11.5-14.5)
[2025-05-13 22:17] VITALS: BP 130/84
[2025-05-13 22:24] LABS: ALT (SGPT) 49 U/L (0-50); AST (SGOT) 51 U/L (17-59); Albumin 4.7 g/dl (3.5-5.0); Alkaline Phosphatase 51 U/L (38-126); Blood Urea Nitrogen 25 mg/dl (9-20); Calcium 9.0 mg/dl (8.4-10.2); Carbon Dioxide 28 mmol/L (22-30); Chloride 105 mmol/L (98-107); Glucose 106 mg/dl (70-99); Potassium 3.7 mmol/L (3.5-5.1); Sodium 139 mmol/L (135-145); Total Protein 8.1 g/dl (6.3-8.2); eGFR > 60.00
[2025-05-13 22:28] VITALS: BMI 28.9
[2025-05-13 22:35] LABS: Troponin I < 0.012 ng/ml
--- NOTE | 2025-05-13 22:46 | ED.GENMED ---
History of Present Illness
<Dulce Henning NP - Last Filed: 05/14/25 00:46>
General
Chief Complaint: AICD Problem
Source: patient
Exam Limitations: none
Time Seen by Provider: 05/13/25 22:35
Nursing documentation reviewed up to this point in time: agreed with
History of Present Illness
History of Present Illness:
Patient to ED after firing of AICD. States he was lying down and suddenly felt faint. He reports his vision becoming black and white. [place] a jolt and symptoms resolved. To ED accompanied by spouse. He is currently symptom free
Past History
<Dulce Henning NP - Last Filed: 05/14/25 00:46>
Past History
ED Past Medical History: CAD, GERD, HTN, Hypercholesterolemia, VT, Hypothyroidism and Other (GERD,, hypertension, gout, Roverto's syndrome, thyroid disease)
Social History
Tobacco: Non-smoker
Personal:
Review of Systems
<Dulce Henning NP - Last Filed: 05/14/25 00:46>
Review of Systems
Allergies reviewed?: Yes
All Other Systems: ROS reviewed and negative except as documented in HPI and ROS
Constitutional: Reports no symptoms
EENT: Reports no symptoms
Respiratory: Reports no symptoms
Cardiac: Reports other (AICD firing GOLF BALL TRIMMER)
ABD/GI: Reports no symptoms
: Reports no symptoms
Musculoskeletal: Reports no symptoms
Skin: Reports no symptoms
Neurological: Reports no symptoms
Psychiatric: Reports no symptoms
Phy Exam
<Dulce Henning NP - Last Filed: 05/14/25 00:46>
General Physical Exam
General Presentation: no apparent distress
General age: appears stated age
General Skin: warm and dry
General Habitus: normal
General Mental: alert
Cardiovascular Exam
Cardiovascular Exam: regular rate/rhythm and no edema
Neurological Exam
Neurological Exam: alert and oriented x3
Musculoskeletal Exam
Musculoskeletal Exam: full ROM and neuro vasc intact
Skin Exam
Skin Exam: normal color, warm/dry and no rash
Psychiatric Exam
Psychiatric Exam: normal mood/affect
Course
<Dulce Henning NP - Last Filed: 05/14/25 00:46>
Orders/Labs/Results
Orders:
Orders
05/13/25 21:50
ECG [Electrocardiogram (*1)] Urgent
Reason for Study: Other
Other Reason for Exam: AICD problem
05/13/25 21:51
EKG- Treatment ONCE
05/13/25 21:54
Complete Blood Count/With Diff Urgent
Comprehensive Metabolic Panel Urgent
Magnesium Urgent
Comment: ADD ON
Troponin I Urgent
05/13/25 22:03
Interrogated [Interrogate Pacemaker- Treatment] ONCE
05/13/25 22:46
Add On- LAB Urgent
Tests Added?: magnesium
05/13/25 22:47
Potassium Chloride [KCl] 40 meq PO NOW STA
05/13/25 23:45
Magnesium Oxide 1,000 mg PO NOW STA
05/13/25 23:47
Amiodarone [Pacerone] 200 mg PO NOW STA
05/14/25 00:00
CR Chest - 2 Views Urgent
Reason For Exam: s/p AICD firing
Abnormal Lab Results
05/13/25
21:54
RBC 4.52 L 10^6/uL
(4.70-6.10)
MCV 96.0 H fL
(80.0-94.0)
MCH 34.3 H pg
(27.0-31.0)
BUN 25 H mg/dl
(9-20)
Glucose 106 H mg/dl
(70-99)
05/13/25 21:54
05/13/25 21:54
Vital Signs
Initial and Last Documented VS:
Initial Vital Signs
Temp Pulse Resp BP Pulse Ox
98.0 F 71 18 136/94 98
05/13/25 21:45 05/13/25 21:45 05/13/25 21:45 05/13/25 21:45 05/13/25 21:45
Last Documented Vital Signs
Temp Pulse Resp BP Pulse Ox
98.0 F 64 17 103/71 96
05/13/25 21:45 05/13/25 23:56 05/13/25 23:30 05/13/25 23:56 05/13/25 23:30
<Jeferson Sanabria, DO - Last Filed: 05/13/25 22:56>
Orders/Labs/Results
Orders:
Orders
05/13/25 21:50
ECG [Electrocardiogram (*1)] Urgent
Reason for Study: Other
Other Reason for Exam: AICD problem
05/13/25 21:51
EKG- Treatment ONCE
05/13/25 21:54
Complete Blood Count/With Diff Urgent
Comprehensive Metabolic Panel Urgent
Magnesium Urgent
Comment: ADD ON
Troponin I Urgent
05/13/25 22:03
Interrogated [Interrogate Pacemaker- Treatment] ONCE
05/13/25 22:46
Add On- LAB Urgent
Tests Added?: magnesium
05/13/25 22:47
Potassium Chloride [KCl] 40 meq PO NOW STA
05/13/25 23:45
Magnesium Oxide 1,000 mg PO NOW STA
05/13/25 23:47
Amiodarone [Pacerone] 200 mg PO NOW STA
05/14/25 00:00
CR Chest - 2 Views Urgent
Reason For Exam: s/p AICD firing
Abnormal Lab Results
05/13/25
21:54
RBC 4.52 L 10^6/uL
(4.70-6.10)
MCV 96.0 H fL
(80.0-94.0)
MCH 34.3 H pg
(27.0-31.0)
BUN 25 H mg/dl
(9-20)
Glucose 106 H mg/dl
(70-99)
05/13/25 21:54
05/13/25 21:54
Vital Signs
Initial and Last Documented VS:
Initial Vital Signs
Temp Pulse Resp BP Pulse Ox
98.0 F 71 18 136/94 98
05/13/25 21:45 05/13/25 21:45 05/13/25 21:45 05/13/25 21:45 05/13/25 21:45
Last Documented Vital Signs
Temp Pulse Resp BP Pulse Ox
98.0 F 64 17 103/71 96
05/13/25 21:45 05/13/25 23:56 05/13/25 23:30 05/13/25 23:56 05/13/25 23:30
<Dulce Henning NP - Last Filed: 05/14/25 00:46>
*Radiology
Radiology exam reviewed: radiology read reviewed
*Pulse Oximetry
SaO2: 97
Oxygen Mode of Delivery: Room air
Patient hypoxic: no
*Critical Care Note
Total Time (30-74mins, 75-104mins- exclusive of procedures): Not Applicable
<Jeferson Sanabria DO - Last Filed: 05/13/25 22:56>
*Pulse Oximetry
Patient hypoxic: no
<Dulce Henning NP - Last Filed: 05/14/25 00:46>
Update Note
Update Note:
Patient to ED after AICD firing at home tonight. No symptoms or complaints since. Remains NSR. Case discussed [facility] Dr. Sanabria who also evaluated this patient. Labs reviewed. K 3.7, Mag 1.8 Given dose of KCL and Magnesium in ED as recommended by
Dr. Sanabria. Dr. Matthews consulted by Dr. Sanabria. Recommends restarting AMiodorone 200mg bid and plan to discharge home if no further AICD firing. Amiodorone Dose given in ED. No futher AICD firing while in ED. He feels well and agreeable to
discharge home. Given instructions on s/s to return to ED and he is agreeable to plan.
ED Attending Note
<Dulce Henning SECURITY FLEX UTILITY OFFICER - Last Filed: 05/14/25 00:46>
-
Portions of this chart may have been created with voice recognition software.� Occasional wrong word or��sound alike� substitutions may have occurred due to the inherent limitations of voice recognition software.
<Jeferson Sanabria, DO - Last Filed: 05/13/25 22:56>
ED Attending Note
I performed the substantive portion of visit, reviewed & personally made and approve the management plan that is documented in note by myself or TOMASZ.: Yes
ED Attending Note:
Seen with nurse practitioner examined independently 64-year-old male AICD shock, x 1 early CV spoke with his certified hand therapist plan was to start back on amiodarone which was stopped a few weeks ago by his primary certified hand therapist, apparently the patient came
to the ER to be evaluated no further shocks, no chest pain or shortness of breath, potassium noted magnesium pending
Reviewed with cardiology plan will be to restart his amiodarone, replete his electrolytes, EP follow-up next week ER sooner if any symptoms or repeat shocks
Discharge Plan
Departure
Patient Disposition: Home (Routine Discharge)
Date of Disposition: 05/14/25
Time of Disposition: 00:25
Patient with high blood pressure during this ER visit?: No
Condition: Good
Covid-19: Not Applicable
Discharge Problem:
AICD discharge
Instructions: Ventricular fibrillation
Prescriptions:
New
amiodarone 200 mg tablet
200 mg PO BID Qty: 60 0RF
No Action
multivitamin [Daily Vitamin] 1 EACH tablet
1 tab PO DAILY
omeprazole 40 MG capsule,delayed release(DR/EC)
40 mg PO DAILY
vitamin B complex [B-100 Complex] 1 EACH tablet
1 tab PO DAILY
aspirin 81 MG tablet,chewable
81 mg PO DAILY 0RF
pravastatin 20 MG tablet
20 mg PO QPM Qty: 30 11RF
hydroxychloroquine 200 MG tablet
400 mg PO DAILY 0RF
furosemide 20 MG tablet
20 mg PO MOWEFR Qty: 12 11RF
carvedilol [Coreg] 12.5 MG tablet
12.5 mg PO BID
zinc 50 mg Tablet
50 mg PO DAILY
magnesium 250 mg Tablet
250 mg PO DAILY
omega-3 fatty acids Capsule
1,000 mg PO DAILY
Jardiance 10 mg Tablet
10 mg PO DAILY
Repatha Syringe 140 mg/mL Syringe
140 mg SC Q2W
allopurinol 300 MG tablet
300 mg PO DAILY
levothyroxine 200 MCG tablet
150 mcg PO DAILY
Brilinta 90 mg Tablet
90 mg PO BID Qty: 60 11RF
sacubitril-valsartan [Entresto] 24-26 mg Tablet
1 tab PO BID Qty: 60 0RF
amiodarone 200 mg Tablet
200 mg PO BID Qty: 60 0RF
amiodarone 200 mg tablet
200 mg PO DAILY Qty: 30 11RF
Referrals:
Cesilia Bowman MD [Family Provider, Internal Medicine]
Jennifer Matthews MD [Active, Cardiology]
Referral Note: Follow up on Friday
Activity Restrictions/Additional Instructions:
Return to the emergency department immediately for any further AICD firing.
Interventions
Interventions:
*General Assessment Last Done: 05/13/25 21:45
*ED- Fall Risk Assessment Last Done: 05/13/25 22:29
*ED COVID-19 Vaccine History Last Done: 05/13/25 22:29
ED- Cardiac Assessment Last Done: 05/13/25 22:29
Discharge Date and Time
Print Language: KINYARWANDA
[2025-05-13 23:00] VITALS: BP 109/73
[2025-05-13] MEDS: KCL 40 MEQ PO (23:01)
[2025-05-13 23:17] LABS: Magnesium 1.8 mg/dl (1.6-2.3)
[2025-05-13 23:56] VITALS: BP 103/71
[2025-05-13] MEDS: PACERONE 200 MG PO (23:56)
[2025-05-13] MEDS: MAGNESIUM OXIDE 1000 MG PO (23:57)
[2025-05-14] VITALS: BP 106/71
== END 2025-05-14 00:50 | disposition home or self-care (01) ==
LOC: EMR 21:43
PROVIDERS: Student in an Organized Health Care Education/Training Program; EMERGENCY PHYSICIAN Emergency Medicine; FAMILY PHYSICIAN Internal Medicine
DX: R55 Syncope and collapse (principal); Z45.02 Encounter for adjustment and management of automatic implantable cardiac defibrillator; H53.8 Other visual disturbances; I25.10 Atherosclerotic heart disease of native coronary artery without angina pectoris; I10 Essential (primary) hypertension; K21.9 Gastro-esophageal reflux disease without esophagitis; E03.9 Hypothyroidism, unspecified; M10.9 Gout, unspecified; E74.04 McArdle disease; I42.9 Cardiomyopathy, unspecified; E78.5 Hyperlipidemia, unspecified; K44.9 Diaphragmatic hernia without obstruction or gangrene; M19.90 Unspecified osteoarthritis, unspecified site; E07.9 Disorder of thyroid, unspecified; I25.2 Old myocardial infarction; Z79.82 Long term (current) use of aspirin
CPT/HCPCS: 99285; 93289; 71046; 80053; 83735; 84484; 85025; 93005

== ENCOUNTER → 2025-06-01 07:06 | Outpatient (REF) | payer BC, SELFPAY | LOC: HWRCS 07:06 | PROVIDERS: ATTENDING PHYSICIAN Nurse Practitioner; FAMILY PHYSICIAN Internal Medicine | DX: I47.20 Ventricular tachycardia, unspecified (principal); I25.10 Atherosclerotic heart disease of native coronary artery without angina pectoris | CPT/HCPCS: 93306 ==

== ENCOUNTER → 2025-06-15 07:12 | Outpatient (REF) | payer BC, SELFPAY | LOC: HWRCS 07:12 | PROVIDERS: ATTENDING PHYSICIAN Nurse Practitioner; FAMILY PHYSICIAN Internal Medicine | DX: I47.20 Ventricular tachycardia, unspecified (principal); I25.10 Atherosclerotic heart disease of native coronary artery without angina pectoris | CPT/HCPCS: 78452; 93017; A9500; J2785 ==

== ENCOUNTER 2025-08-05 07:51 | Day surgery (SDC) | payer BC, SELFPAY ==
[2025-07-15 07:56] VITALS: BMI 28.2
[2025-07-15 08:52] LABS: Hematocrit 46.3 % (39.0-52.0); Hemoglobin 15.6 g/dL (13.0-18.0); Mean Corp Hgb Conc. 33.7 g/dL (33.0-37.0); Mean Corpuscular Volume 98.5 fL (80.0-94.0); Nucleated Red Blood Cells % 0 % (-); Platelet Count 203 10^3/uL (130-400); Red Cell Dist. Width 13.4 % (11.5-14.5)
[2025-07-15 09:21] LABS: ALT (SGPT) 36 U/L (0-50); AST (SGOT) 42 U/L (17-59); Albumin 4.4 g/dl (3.5-5.0); Alkaline Phosphatase 52 U/L (38-126); Blood Urea Nitrogen 24 mg/dl (9-20); Calcium 9.4 mg/dl (8.4-10.2); Carbon Dioxide 27 mmol/L (22-30); Chloride 107 mmol/L (98-107); Estimated Creatinine Clearance 91 ml/min; Glucose 112 mg/dl (70-99); Magnesium 2.1 mg/dl (1.6-2.3); Potassium 3.9 mmol/L (3.5-5.1); Sodium 142 mmol/L (135-145); Total Protein 7.5 g/dl (6.3-8.2); eGFR > 60.00
[2025-08-05] VITALS (18 sets, daily range): BP systolic 97–143; BP diastolic 65–87
[2025-08-05] MEDS: NSS 500 IV (09:17)
--- NOTE | 2025-08-05 10:47 | ITS.CL.ABL ---
Environmental Technical Officer - Ablation
Ablation
Procedure Report:
ELECTROPHYSIOLOGY ABLATION REPORT
Date of Procedure: August 05, 2025
Referring: Dr. Nigel Anders
INDICATION: Recurrent sustained ventricular tachycardia
HISTORY:
He has history of ischemic/infarct related cardiomyopathy.
He had sustained ventricular tachycardia requiring ICD shock on October 25, 2024. Further evaluation found him to have mid LAD stenosis for which he underwent drug-eluting stent placement. He was started on amiodarone which was continued for 6
months and then stopped in April 2025. He had recurrent VT May 13, 2025 treated with ATP and then shock. Amiodarone was resumed. Ischemic evaluation with sestamibi study as well as echocardiogram were felt to be unchanged.
PROCEDURE:
The Medtronic chamber ICD was interrogated and found to have normal stable function. VT/VF detections were programmed OFF. Additional programming changes included reprogramming of base pacing rate from 60 to 75 bpm in MVP mode.
Sheaths were placed and IV heparin bolus followed by continuous infusion to maintain ACT at 250-350 seconds.
Intracardiac echocardiogram was utilized to assist in catheter positioning/mapping and ablation as well as to monitor for any mechanical injury during the procedure.
Procedural plan is to obtain both transseptal access for left ventricular mapping and ablation as well as arterial access for retrograde aortic mapping and ablation.
Heparin bolus and infusion to target ACT at 300 -350 seconds was administered. Transseptal puncture was performed. This entailed advancing a sheath with dilator into the superior vena cava and withdrawing both (monitoring intracardiac ultrasound,
fluoroscopy and tip pressure) with the tip oriented toward the atrial septum. The fossa ovalis was engaged (indicated by sudden displacement of the sheath tip as well as tenting of the fossa seen on intracardiac ultrasound).
The FarNavigenics transseptal system was used. Left atrial catheter position was confirmed by echocardiographic imaging and fluoroscopy followed by RF delivery using the goOutMap system resulting in successful LA access with pressure monitoring
demonstrating LA pressure waveforms (LA mean pressure 1 mm Hg). The sheath was advanced over the dilator and positioned in the left atrium.
Right femoral arterial access was obtained and access upsized to the 12 [place] Agilis sheath.
The multipolar mapping catheter ([employer]) was positioned within the LV cavity using a retrograde aortic approach.
Extensive sinus rhythm electroanatomical three-dimensional voltage map/geometry was collected and created using ARUN.
Intracardiac echocardiogram as well as voltage map demonstrated that there is an area of aneurysmal scar at the ant and septal mid-apical segments
Functional substrate mapping techniques identified potential markers of VT substrate such as late potentials (LPs) and areas with local abnormal ventricular activation (LAVAs) within low voltage areas to develop isochronical late activation maps
(ILAM) identifying deceleration zones (DZs) and potential VT termination sites. There is patch of of isochronal late activation extending from within this aneurysmal dilatation to the mid interventricular septum.
Programmed electrical stimulation induced ventricular tachycardia. Very rapid, 300 ms with right bundle superior and lateral axis, mid to apical. Activation mapping was attempted however this rhythm was hemodynamically unstable and required urgent
cardioversion. Programmed electrical stimulation was again performed and similar VT was induced again hemodynamically unstable requiring urgent cardioversion. Limited activation data suggested breakout from the mid to apical septal scar from
inferior to superior/anterior.
Next, substrate modification was undertaken targeting the area of isochronal late activation and local abnormal ventricular activation.
RF application was delivered using 35 W for up to 45 seconds at each individual site.
Initially, retrograde transaortic approach utilizing a 4 mm irrigated contact sensing RF ablation catheter was utilized for ablation at the targeted sites. Navigation of the catheter tip in and around the area of the medial papillary muscle was
difficult. In an effort to attempt better catheter positioning, the 4 mm irrigated tip mapping and ablation catheter was withdrawn from the transaortic approach and was delivered via the transseptal puncture catheter. The ablation catheter was
then positioned across the mitral valve for additional mapping and ablation at the targeted site allowing additional ablations within the targeted site.
Next programmed electrical stimulation was repeated and in contrast to the preablation state, no sustained ventricular arrhythmias could now be induced.
Next, the Farapulse pulsed field ablation catheter was substituted for the 4 mm tip catheter and pulsed electric field energy's were delivered in both basket and mostly the flower configuration at the targeted site further reducing ventricular
signal amplitude.
Intracardiac echocardiogram demonstrated no pericardial effusion and no change in left ventricular systolic function.
There is no change in the fluoroscopic nor the echocardiographic appearance of the atrial and ventricular leads.
Catheters/sheaths were withdrawn from the left ventricle as well as the left atrium.
Heparin was discontinued
Intravenous protamine was administered
Sheaths were removed.
The dual-chamber ICD was interrogated and found to have normal stable function. VT and VF detections were programmed back on and bradycardia pacing was reprogrammed reducing base pacing rate from 75 to 60 bpm and maintaining MVP mode.
COMPLICATIONS:
There is bleeding around the entry site of the Agilis sheath at the right femoral artery with surrounding hematoma. There is +2 pulses distally.
With manual pressure, hemostasis was adequately obtained.
SUMMARY:
Mapping and ablation of ventricular tachycardia.
Transseptal puncture.
Interrogation and reprogramming of dual-chamber ICD
RECOMMENDATIONS:
Observe overnight
Check right groin ultrasound
Maintain amiodarone
Copy to:
Dr. Nigel Anders
[2025-08-05 11:57] LABS: ACT-LR - POC 334 Seconds (116-155)
[2025-08-05 12:20] LABS: ACT-LR - POC 372 Seconds (116-155)
[2025-08-05 12:44] LABS: ACT-LR - POC 340 Seconds (116-155)
[2025-08-05 13:18] LABS: ACT-LR - POC 372 Seconds (116-155)
[2025-08-05 13:42] LABS: ACT-LR - POC 337 Seconds (116-155)
[2025-08-05 13:58] LABS: ACT-LR - POC 364 Seconds (116-155)
[2025-08-05 14:35] LABS: ACT-LR - POC 372 Seconds (116-155)
[2025-08-05 14:51] LABS: ACT-LR - POC 165 Seconds (116-155)
--- NOTE | 2025-08-05 16:55 | CM ---
Chart reviewed. Patient is independent of ADLS, lives with his in a [address], 3 [address], 0 DME. Plan is for the patient to return home. CM to follow
[2025-08-05] MEDS: PROTONIX 40 MG PO (19:22)
[2025-08-05] MEDS: PRAVACHOL 20 MG PO (19:22)
[2025-08-05] MEDS: COREG 12.5 MG PO (19:23)
[2025-08-05] MEDS: ENTRESTO 24 MG/26 MG 1 TAB PO (19:23)
[2025-08-05] MEDS: FLOMAX 0.4 MG PO (19:23)
--- NOTE | 2025-08-05 19:23 | PTCARENOTE ---
Pt arrived from [facility] s/p PVI into 2223. Pt AAOx3 A Paced on the monitor. VSS rt groin site previous hematoma boarder marked and no changes dressing c/d/i skin soft pulses with Doppler. Pt on bedrest until [address] for retention. Call
beckford within reach.
[2025-08-05] MEDS: NSS IV (22:05)
--- NOTE | 2025-08-06 00:02 | PTCARENOTE ---
Assumed care of patient at change of shift. Pt AAOx3, tele monitor shows NSR and occasionally Apaced. Denies any pain or SOB. Sating 97-99% RA. Right groin figure 8 clipped at 19:25, dry dressing applied. Right groin soft on palpation w/ large
bruise noted. Right DP pulse + w/ Doppler. Benites removed at 20:09. Urinal provided, and at bedside. Reviewed plan of care w/ patient. Ambulated patient to the bathroom w/ standby assist. Gait unsteady, pt denies any dizziness. Instructed patient to
ring for assistance. Call beckford in reach.
[2025-08-06 03:45] VITALS: BP 110/78
[2025-08-06 03:54] VITALS: BMI 29.2
[2025-08-06 04:38] LABS: Hematocrit 35.6 % (39.0-52.0); Hemoglobin 12.5 g/dL (13.0-18.0); Mean Corp Hgb Conc. 35.1 g/dL (33.0-37.0); Mean Corpuscular Volume 100.0 fL (80.0-94.0); Platelet Count 154 10^3/uL (130-400); Red Cell Dist. Width 13.4 % (11.5-14.5)
[2025-08-06 04:53] LABS: Blood Urea Nitrogen 19 mg/dl (9-20); Calcium 8.1 mg/dl (8.4-10.2); Carbon Dioxide 24 mmol/L (22-30); Chloride 111 mmol/L (98-107); Estimated Creatinine Clearance 103 ml/min; Glucose 117 mg/dl (70-99); Magnesium 1.8 mg/dl (1.6-2.3); Potassium 3.9 mmol/L (3.5-5.1); Sodium 138 mmol/L (135-145); eGFR > 60.00
[2025-08-06] MEDS: SYNTHROID 150 MCG PO (05:10)
[2025-08-06 06:58] VITALS: BP 96/59
[2025-08-06] MEDS: FARXIGA 10 MG PO (08:26)
[2025-08-06] MEDS: ZYLOPRIM 300 MG PO (08:27)
[2025-08-06] MEDS: ENTRESTO 24 MG/26 MG 1 TAB PO (08:27)
[2025-08-06] MEDS: PACERONE 200 MG PO (08:27)
[2025-08-06] MEDS: COREG 12.5 MG PO (08:27)
[2025-08-06] MEDS: ALDACTONE 12.5 MG PO (08:27)
[2025-08-06] MEDS: PLAQUENIL 400 MG PO (08:28)
--- NOTE | 2025-08-06 09:13 | W.PN.CARDCBS ---
Today's Communication / Plan
-
Discharge to home
Impression / Plan
-
PCP: Dr. Bowman
Psychology Professor: Dr. Anders
Rheum: Dr. Jennifer Ayers
Nephro: Dr. Leon at [facility]
Impression:
Admitted following elective VT ablation for recurrent sustained VT 08/05/2025
Right groin ecchymosis without evidence of hematoma or pseudoaneurysm by [id number]
Previous admission for AICD shock for VF 10/24/24
h/o NSVT
ICM EF 25-30% by echo 12/15/23, stable at 20 to 25% by echo 06/01/2025
Chronic HFpEF
s/p Medtronic dual-chamber ICD
CAD
s/p Cypher SHYANNE to OM 2007
s/p AWMI 3.25 mm Xience to proximal LAD occlusion and tandem 2.75 mm x2 Xience to mid LAD lesions 09/26/17
s/p 4.0mm Xience V to the mid to distal RCA and 3.0mm Xience V to the OM1 09/29/17
s/p 3.0 mm Xience to LAD 10/25/24
h/o glomerulonephritis
Roverto's disease
Dyslipidemia
Hypothyroidism
Echo 12/15/23: EF 25-30%, grade I diastolic dysfunction, normal RV size and function, no pericardial effusion
Echo 10/25/24: EF 25-30%, mild conc LVH, apical and apical septal hypokinesis, trace MR/TR, no pericardial effusion
Echo 06/01/2025: EF 20 to 25%, global hypokinesis with apical akinesis, no significant valve disease
Plan:
-Patient was admitted following planned EP study and VT ablation on 08/05/2025 for right groin ecchymosis, but U/S was negative for hematoma or pseudoaneurysm.
-Patient feels well from overnight and Hgb is 12.5.
-Patient with previous LAD PCI 10/25/24 and remains on Brilinta 90 mg BID plus aspirin 81 mg daily, but these were held for procedure. Patient can continue with aspirin 81 mg daily and then restart Brilinta on 08/11/2025.,
-Outpatient dose of amiodarone 200 mg daily for VT was also continued
-Outpatient dose of Coreg 12.5 mg BID continued
-Outpatient dose of Entresto 24/26 mg BID has been continued.
-Outpatient dose of Jardiance 10 mg daily has been continued in the form of Farxiga due to formulary.
-Outpatient dose of Lasix 20 mg MWF has been continued
-Outpatient dose of spironolactone 12.5 mg daily has been continued.
-Patient follows with Dr. Ayers in the Rheum office for h/o Roverto's disease
-QTc 476 ms on my review of ECG from 08/06/2025 with combined therapy amiodarone and hydroxychloroquine
-Patient follows with nephrology at [facility], Dr. Leon. Cre 0.8 on my review of labs 08/06/2025
-Discharge to home 08/06/2025
HPI: [facility] after an ICD shock for VF and cardiology is consulted. Patient with h/o chest pain and abnormal stress test that led to a cath in 2007 with Cypher SHYANNE to at that time. He then presented with acute anterior
STEMI 09/26/17 and underwent emergent LHC with Dr. Gonzales where he was found to have 3 vessel CAD with moderate to severe LV dysfunction including proximal LAD occlusion. Patient had 3.25 mm Xience to proximal LAD occlusion and tandem 2.75 mm x2
Xience to mid LAD lesions 09/26/17. Patient then returned for 4.0mm Xience V to the mid to distal RCA and 3.0mm Xience V to the OM1 09/29/17. Patient has been on optimal medical therapy and EF remained depressed and so Medtronic DC ICD was placed in
2019. Patient has never been shocked but has had occasional NSVT on device checks in the office. Patient says he was able to shovel some snow on Friday without chest pain, but that most of the shoveling was done by a neighbor. Patient had an
uneventful day yesterday and was laying down to go to bed last night when he felt briefly dizzy and then was shocked. No additional symptoms, he denies chest pain or SOB. He came to [facility] where device check confirmed AICD shock and patient was
admitted.
Progress Note - Psychology Professor
Subjective
Date of Service: August 06, 2025
He feels well
Objective
Labs:
08/06/25 03:54
08/06/25 03:54
Labs
Hgb 12.5 g/dL (13.0-18.0) L 08/06/25 03:54
Hct 35.6 % (39.0-52.0) L 08/06/25 03:54
Plt Count 154 10^3/uL (130-400) 08/06/25 03:54
Sodium 138 mmol/L (135-145) 08/06/25 03:54
Potassium 3.9 mmol/L (3.5-5.1) 08/06/25 03:54
BUN 19 mg/dl (9-20) 08/06/25 03:54
Creatinine 0.8 mg/dL (0.7-1.3) 08/06/25 03:54
Glucose 117 mg/dl (70-99) H 08/06/25 03:54
Vital Signs and I&O:
Vital Signs
Temp Pulse Resp BP Pulse Ox
99.2 F 64 18 110/78 97
08/06/25 06:56 08/06/25 04:00 08/06/25 06:56 08/06/25 03:45 08/06/25 06:56
Vital Signs
Temp Pulse Resp BP Pulse Ox
99.2 F 64 18 110/78 97
08/06/25 06:56 08/06/25 04:00 08/06/25 06:56 08/06/25 03:45 08/06/25 06:56
Intake & Output
08/04/25 08/05/25 08/06/25 08/07/25
06:59 06:59 06:59 06:59
Intake Total 520 / 520
Output Total 475 / 475
Balance 45 / 45
Physical Exam
Physical Exam
GEN: NAD. AAOx3
LUNGS: RA. No audible wheeze
CV: A paced on tele
EXT: Right groin ecchymosis extending from flank to suprapubic area, soft without evidence of hematoma
--- NOTE | 2025-08-06 09:26 | W.DS.TRANS ---
DC Summary - Antique Finisher
-
Discharge Instructions:
Discharge Diagnosis/Procedures VT post ablation, right groin ecchymosis without
evidence of hematoma or pseudoaneurysm on
ultrasound 08/05/25
Diet Low Cholesterol,2 Gram Sodium,Restrict fluids to
48 oz
Activity Other activity
Driving Restrictions No driving for 24 hours
Bathing Restrictions OK to Shower
Specialty Instructions Weigh Daily
Instructions:
Stand-Alone Forms: DC Instructions- Cath/EP Lab
Changes to Home Medications: No
Discharge Medications:
DC Medications w/original date entered in [facility]
multivitamin (Daily Vitamin tablet) 1 tab PO DAILY 10/31/14
omeprazole 40 mg capsule,delayed release 40 mg PO Q48H 10/31/14
vitamin B complex (B-100 Complex tablet) 1 tab PO DAILY 10/31/14
aspirin 81 mg chewable tablet 81 mg PO DAILY 09/30/17
furosemide 20 mg tablet 20 mg PO MOWEFR #12 tabs 09/30/17
hydroxychloroquine 200 mg tablet 400 mg (2 x 200 mg) PO DAILY 09/30/17
pravastatin 20 mg tablet 20 mg PO QPM ##30 09/30/17
carvedilol 12.5 mg tablet (Coreg) 12.5 mg PO BID 01/08/19
allopurinol 300 mg tablet 300 mg PO DAILY 10/25/24
empagliflozin 10 mg tablet (Jardiance) 10 mg PO DAILY 10/25/24
evolocumab 140 mg/mL subcutaneous syringe (Repatha Syringe) 140 mg SC Q2W 10/25/24
levothyroxine 200 mcg tablet 150 mcg PO DAILY 10/25/24
magnesium 250 mg tablet 250 mg PO DAILY 10/25/24
omega-3 fatty acids 1,000 mg PO DAILY 10/25/24
zinc 50 mg tablet 50 mg PO DAILY 10/25/24
amiodarone 200 mg tablet 200 mg PO DAILY Arrhythmia #30 tabs 10/26/24
sacubitril 24 mg-valsartan 26 mg tablet (Entresto) 1 tab PO BID Heart Failure #60 tabs 10/26/24
ticagrelor 90 mg tablet (Brilinta) 90 mg PO BID Heart disease/condition #60 tabs 10/26/24
Held on 08/05/25. Instructions: Resume on 08/11/25. Please ask Dr. Anders if you need to resume this medication as it has been almost a year since your last stent. Continue to take Aspirin.
spironolactone 25 mg tablet 12.5 mg PO DAILY 07/13/25
tamsulosin 0.4 mg capsule 0.4 mg PO DAILY 07/13/25
Home Medication Changes
Pending Results: No
[2025-08-06] MEDS: LOW STRENGTH ASPIRIN 81 MG PO (10:45)
[2025-08-06 10:49] VITALS: BP 89/52
--- NOTE | 2025-08-06 11:29 | PTCARENOTE ---
Pt was discharged to home with family. Pt last bp 89/53 asymptomatic W. Ana aware. Discharge instructions discussed with pt and family verbalized understanding. Pt was escorted out by wheelchair with Jason RUANO and family. potline monitor and pivs
removed prior to dc.
== END 2025-08-06 12:54 | disposition home or self-care (01) ==
LOC: CATH 07:51
PROVIDERS: Nurse Practitioner Adult Health; ATTENDING PHYSICIAN Internal Medicine Cardiovascular Disease; FAMILY PHYSICIAN Internal Medicine; OTHER PHYSICIAN Internal Medicine Cardiovascular Disease
DX: I47.20 Ventricular tachycardia, unspecified (principal); I25.10 Atherosclerotic heart disease of native coronary artery without angina pectoris; I25.5 Ischemic cardiomyopathy; E78.5 Hyperlipidemia, unspecified; I25.2 Old myocardial infarction; E74.04 McArdle disease; E03.9 Hypothyroidism, unspecified; I11.0 Hypertensive heart disease with heart failure; I50.32 Chronic diastolic (congestive) heart failure; Z79.02 Long term (current) use of antithrombotics/antiplatelets; Z79.82 Long term (current) use of aspirin; Z79.899 Other long term (current) drug therapy; Z95.5 Presence of coronary angioplasty implant and graft; Z95.810 Presence of automatic (implantable) cardiac defibrillator
CPT/HCPCS: 36415; 80048; 80053; 83735; 85025; 85027; 85347; 86850; 86900; 86901; 93005; 93462; 93654; 93926; C1732; C1733; C1766; C1769; C1892; C1894